=== PATIENT | female | born 1965 | race Caucasian/White ===

== ENCOUNTER 2018-12-10 | Emergency (ER) | payer OTHER ==
[~2018-12-10] VITALS: Ht 177.8 cm; Wt 76.0 kg
[~2018-12-10] MED LIST: AMLO-150 PO; ASCO10004 PO; CHOL5000 PO; CYCL5TAB PO; NICO-485 TD; OXYB10TA PO
--- NOTE | 2018-12-10 01:33 | NUR ---
PT ASSISTED FROM WHEELCHAIR INTO GOWN. REDNESS AND SWELLING NOTED TO BILATERAL LOWER EXTREMITIES. REDNESS NOTED TO POSTERIOR BACK WITH OPEN BLISTER AND SCAB IN PLACE.
[2018-12-10] MEDS ORDERED: HYDROcodone/APAP 5/325 TABLET ONE (01:53)
[2018-12-10] MEDS ORDERED: HYDROcodone/APAP 5/325 TABLET PO ONE (02:00)
[2018-12-10] MEDS ORDERED: SILVER SULF. CRM 1% , 25GM TP ONE (02:00)
--- NOTE | 2018-12-10 02:01 | NUR ---
PT MEDICATED FOR PAIN PER EMAR.
[2018-12-10] MEDS ORDERED: SILVER SULF. CRM 1% , 25GM ONE (02:22)
--- NOTE | 2018-12-10 02:39 | NUR ---
PT SHOWERED AND PLACED IN CLEAN CLOTHES.
[2018-12-10 03:16] VITALS: BP 128/76
== END 2018-12-10 03:19 | disposition home or self-care (01) ==
LOC: ED 03:13
DX: T21.24XA Burn of second degree of lower back, initial encounter (principal); T21.25XA Burn of second degree of buttock, initial encounter; T24.202A Burn of second degree of unspecified site of left lower limb, except ankle and foot, initial encounter; T24.201A Burn of second degree of unspecified site of right lower limb, except ankle and foot, initial encounter; T31.0 Burns involving less than 10% of body surface; L55.1 Sunburn of second degree; L24.9 Irritant contact dermatitis, unspecified cause; E66.9 Obesity, unspecified; X08.8XXA Exposure to other specified smoke, fire and flames, initial encounter; Y93.89 Activity, other specified; Y92.89 Other specified places as the place of occurrence of the external cause; Y99.8 Other external cause status
CPT/HCPCS: 16000; 99284